=== PATIENT | female | born 1950 | race Caucasian/White ===

== ENCOUNTER 2016-11-11 14:57 | Inpatient (IN) | payer MEDICARE, MEDICAID ==
[~2016-11-11] VITALS: Ht 160 cm; Wt 61.9 kg
[~2016-11-11 14:57] MED LIST: ALBU2.5V2 AEROSOL; ALBU8.5H INH; ASPI-13 PO; ATOR20TA59 PO; BUDE0.5A6 AEROSOL; CYCL-375 PO; DABI150C PO; DILT240C3 PO; DOCU-175 PO; DULO60CA56 PO; FURO20TA4 PO; GABA-338 PO; IPRA3AMP AEROSOL; ISOS30TA6 PO; METO-277 PO; MONT10TA25 PO; NITR0.4T SL; OXYC1TAB13 PO; PANT40TA27 PO; POTA10TA14 PO; PRED20TA PO; SUCR1TAB PO; TIOT4MIS5 INH; [UNRECOGNIZED DRUG - CODE] PO
--- OUTSIDE RECORDS SUMMARY | 2016-11-11 15:02 | XMS REPORT | Continuity of Care Document ---
Author Author NA [facility] Organization [facility] Address Unknown Phone Unavailable Support Name Relationship Address Phone KANDI MESSER DO Caregiver [address] [place] [address] Unavailable KANDI MESSER DO Caregiver [address] [place] [address] Unavailable JONEL HILLMAN Next Of Kin [address] [place] [address] Insurance Providers Guarantor Neville Berman Address [address] [place] [address] Email DENIED/NO TO PT PORTAL Payer [facility] Community Plan Policy Number [id number] Subscriber's Name Neville Berman Relationship 18 Self Effective Date 16 Expiration Date 16 Payer Medicare Policy Number [id number] Subscriber's Name Neville Berman Relationship 18 Self Advance Directives Directive Response Recorded Date/Time Ordered Resuscitation Status Full Code, unverified 06/26/16 3:32pm Resuscitation Documents on File No 06/28/16 6:55am DPOA for Healthcare Only No 06/28/16 6:55am Living Will No 06/28/16 6:55am Problems Active Problems Medical Problem Onset Date Status Atrial fibrillation Unknown Chronic COPD exacerbation Unknown Acute Carotid artery disease Unknown Chronic Chronic respiratory insufficiency Unknown Chronic Constipation Unknown Acute Coronary artery disease Unknown Chronic Dyslipidemia Unknown Chronic Dysphagia Unknown Chronic GERD (gastroesophageal reflux disease) Unknown Chronic Hypertension Unknown Chronic Osteoarthritis Unknown Chronic Paroxysmal atrial fibrillation Unknown Resolved Polymyalgia rheumatica Unknown Chronic Pulmonary hypertension Unknown Chronic Skin tear of left forearm without complication Unknown Acute Syncopal episodes Unknown Acute Tobacco abuse Unknown Chronic Type 2 diabetes mellitus Unknown Chronic Surgical Problem Onset Date Status History of left-sided carotid endarterectomy Unknown Past Problems Medical Problem Onset Date Acute bronchitis Unknown COPD (chronic obstructive pulmonary disease) Unknown COPD (chronic obstructive pulmonary disease) Unknown Hypoxia Unknown Peripheral edema Unknown Medications Current Home Medications Medication Dose Units Route Directions Days Qty Instructions Start Date Albuterol Sulfate 2.5 Mg/0.5 Ml Vial.neb 2 Vial Aerosol Tx. Every 6 Hours 120 Vial 06/26/16 Albuterol Sulfate (Proair Hfa 90 Mcg/Actuation) 8.5 Gm Hfa.aer.ad 2 Puff Inhalation Every 4 Hours as needed for Prn Orders 07/24/15 Aspirin/Calcium Carbonate/Mag (Aspirin Buffered 325 Mg Tab) 325 Mg Tablet 1 Tab Oral Daily 06/27/16 Atorvastatin Calcium 20 Mg Tablet 20 Mg Oral Daily 07/24/15 Budesonide 0.5 Mg/2 Ml Ampul.neb 1 Vial Aerosol Tx. Twice A Day 05/08/16 Cyclobenzaprine Hcl 10 Mg Tablet 10 Mg Oral Three Times A Day as needed for Prn Orders 07/24/15 Dabigatran Etexilate Mesylate (Pradaxa) 150 Mg Capsule 150 Mg Oral Twice A Day 07/24/15 Diltiazem Hcl (Diltiazem 24HR Er) 240 Mg Capsule 240 Mg Oral Daily 07/24/15 Docusate Sodium 100 Mg Capsule 100 Mg Oral Twice A Day 05/08/16 Duloxetine Hcl 60 Mg Capsule.dr 60 Mg Oral Daily 07/24/15 Furosemide 20 Mg Tablet 1 Tab Oral Daily 30 06/26/16 Gabapentin 300 Mg Capsule 300 Mg Oral Four Times Daily 07/24/15 Guaifenesin/Dextromethorphan (Guaifenesin-Dm 400-20 Mg Cplt) 1 Each Tablet 1 Tab Oral Twice A Day 04/17/16 Ipratropium/Albuterol Sulfate (Iprat-Albut 0.5-3(2.5) Mg/3 Ml) 3 Ml Ampul.neb 1 Unit Aerosol Tx. Four Times Daily 12/14/15 Isosorbide Mononitrate (Isosorbide Mononitrate Er) 30 Mg Tab.er.24h 1 Tab Oral Daily 30 06/26/16 Metoprolol Succinate 50 Mg Tab.er.24h 50 Mg Oral Daily 07/24/15 Montelukast Sodium 10 Mg Tablet 10 Mg Oral Bedtime 07/24/15 Nitroglycerin (Nitrostat) 0.4 Mg Tablet 1 Tab Sublingual As Needed as needed for Prn Orders 100 Tablet 03/31/16 Oxycodone Hcl/Acetaminophen (Percocet 10-325 Mg Tablet) 1 Each Tablet 1 Tab Oral Every 6 Hours as needed for Pain 07/24/15 Pantoprazole Sodium 40 Mg Tablet.dr 40 Mg Oral Twice A Day Potassium Chloride 10 Meq Tablet.er 10 Meq Oral Daily 05/08/16 Prednisone 20 Mg Tablet 60 Mg Oral Give With Breakfast Take 3 (20 mg ) tablets, by mouth, once a day with breakfast. 06/26/16 Sucralfate 1 Gm Tablet 1 Gm Oral Four Times Daily 05/08/16 Tiotropium [place] (Spiriva Respimat) 4 Gm Mist.inhal 2 Puff Inhalation Bedtime 07/24/15 Past Home Medications Medication Directions Ordered Status Budesonide (Pulmicort) 0.5 Mg/2 Ml Inha, 1 Puff Inhalation As Needed as needed for Prn Orders 07/24/15 Discontinued Pantoprazole Sodium 40 Mg Tablet.dr, 40 Mg Oral Before Breakfast 07/24/15 Discontinued Social History Social History Problem Response Recorded Date/Time Onset Date Status Reason for Hospitalization EGD 06/28/2016 8:05am Not Applicable Not Applicable Chewing Tobacco Status No 06/28/2016 6:57am Not Applicable Not Applicable Hx Substance Use No 06/28/2016 6:57am Not Applicable Not Applicable Hx Alcohol Use No 06/28/2016 6:57am Not Applicable Not Applicable Has the pt used tobacco in the last 12 months Yes 06/28/2016 6:57am Not Applicable Not Applicable Tobacco Usage smoke 07/24/2015 4:37pm Not Applicable Not Applicable Query Response Start Date Stop Date Smoking Status Former smoker Hospital Discharge Instructions Instructions: Care Instructions: I was in the hospital because (patient own words): CHECK ULCERS AND BLEEDING IN THE STOMACH Discharge Diet: You may resume your usual diet. Discharge Activity: You may resume your usual activity. Follow Up Appointments: Follow up with Dr. Messer as instructed. You can call his office for any questions or concerns. Pending Lab / Results: No Pending Lab Patient Instructions: Do not drive, operate machinery, drink alcohol, or sign important papers for 24 hours. Expected Signs/Symptoms: You may have some gas discomfort. Notify Physician If: Contact if you have a fever over 101 degrees, severe abdominal pain, or severe rectal bleeding. During Business Hours:: During office hours, call Dr. Messer's office at [phone]. After Business Hours:: Please call [facility] at [phone] and have the knot saw operator page Dr. Messer or the covering physician. Pain Management/Treatment: You should not have significant pain following the procedure. Wound/Incision Care: No wound care required. Condition at time of discharge: Good Plan of Care Discharge Date 06/28/16 9:10am Instructions/Education Provided [facility] Surgical Services Prescriptions See Medication Section Functional Status Query Response Date Recorded Ability to complete ADL's impeded by No change June 28, 2016 6:55am Allergies, Adverse Reactions, Alerts Allergen Type Severity Reaction Status Last Updated Strawberries Allergy Unknown Active 05/08/16 Penicillin Allergy Unknown Active 05/08/16 Tetanus Vaccines and Toxoid Allergy Unknown Active 05/08/16 Morphine Allergy Unknown Active 05/08/16 Propoxyphene Allergy Unknown Active 05/08/16 Tetracycline Allergy Unknown Active 05/08/16 Erythromycin base Allergy Unknown Active 05/08/16 Meperidine Allergy Unknown Active 05/08/16 Immunizations Query Response on File Recorded Date/Time Hx Influenza Vaccination Y 03/17/16 06/28/16 6:57am Hx Pneumococcal Vaccination Y PREVNAR 04 JUL 2015, PREVNAR 23 03/17/16 6:57am Hx Influenza Vaccination Y 03/17/16 06/28/16 6:57am DTaP Vaccine History ALLERGIC 05/08/16 3:49pm Influenza Vaccine Hx 2016 05/08/16 3:49pm Tdap Vaccine Hx 11/19/15 11/19/15 2:00am Vital Signs Acute Vital Signs Vital Response Date/Time Temperature (Fahrenheit) 97.5 deg F (96.8 - 99.1) 06/28/2016 8:40am Temperature (Calculated Celsius) 36.07423 degrees C (36.0 - 37.3) 06/28/2016 8:40am Temperature Source Temporal 06/28/2016 8:40am Pulse Rate (adult) 74 bpm (60 - 100) 06/28/2016 8:55am Respiratory Rate 16 breaths/min (10 - 20) 06/28/2016 8:55am O2 Sat by Pulse Oximetry 96 % (90 - 100) 06/28/2016 8:55am Oxygen Delivery Method Room Air 04/17/2016 5:45pm Oxygen Delivery Method Nasal Cannula 06/28/2016 8:55am Oxygen Flow Rate 3.00 L/min 06/28/2016 8:55am Blood Pressure 127/63 mm Hg 06/28/2016 8:55am Blood Pressure Source Automatic Cuff 06/28/2016 8:55am Height (Feet) 5 feet 06/28/2016 6:25am Height (Inches) 2.00 inches 06/28/2016 6:25am Weight (Kilograms) 64.200 kg 06/28/2016 6:25am Body Mass Index (BMI) 25.9 06/28/2016 6:25am Results Laboratory Results Test Name Result Units Flags Reference Collection Date/Time Result Date/ Time Comments Total Bilirubin 0.40 MG/DL 0.20-1.30 04/07/2016 3:57am 04/07/2016 5: 04am Alkaline Phosphatase 47 U/L 38-126 04/07/2016 3:57am 04/07/2016 5:04am Total Protein 5.6 G/DL L 6.3-8.2 04/07/2016 3:57am 04/07/2016 5:04am Albumin 3.2 G/DL L 3.5-5.0 04/07/2016 3:57am 04/07/2016 5:04am Globulin 2.4 G/DL 2.4-3.6 04/07/2016 3:57am 04/07/2016 5:04am Albumin/Globulin Ratio 1.3 RATIO 1.1-2.2 04/07/2016 3:57am 04/07/2016 5 :04am Aspartate Amino Transf (AST/SGOT) 20 U/L 14-36 04/07/2016 3:57am 2015 5:04am Alanine Aminotransferase (ALT/SGPT) 24 U/L 9-52 04/07/2016 3:57am 04/07 5:04am Magnesium Level 2.3 MG/DL 1.6-2.3 04/04/2016 3:57am 04/04/2016 4:58am Free Thyroxine 1.32 NG/DL 0.78-2.19 03/31/2016 10:03pm 04/03/2016 1: 16am Hemoglobin A1c 6.1 % 6.1-7.9 04/03/2016 4:23am 04/03/2016 5:43am <6.0 NON-DIABETIC RANGE 6.1-7.9 EMIRATI DIABETES ASSOC TARGET RANGE >8.0 ACTION SUGGESTED Arterial Blood pH 7.400 7.350-7.450 03/31/2016 4:45pm 03/31/2016 4: 54pm Arterial Blood Partial Pressure CO2 50 MMHG H 34-45 03/31/2016 4:45pm 4:54pm Arterial Blood pO2 at Patient Temp 78 MMHG L 80-100 03/31/2016 4:45pm 4:54pm Arterial Blood HCO3 31 MEQ/L H 22-26 03/31/2016 4:45pm 03/31/2016 4: 54pm Arterial Blood Total CO2 32.5 MEQ/L H 23-03/31/2016 4:45pm 2015 4:54pm Arterial Blood Base Excess 5.1 MMOL/L H -2.0-2.0 03/31/2016 4:45pm 03/31 4:54pm Arterial Blood Oxygen Saturation 95.0 % 95.0-98.0 03/31/2016 4:45pm 03/2016 4:54pm Blood Gas Oxygen Liter Flow 2 03/31/2016 4:45pm 03/31/2016 4:54pm Oxygen Delivery Method (LAB) NASAL CANNULA,LITERS 03/31/2016 4:45pm 03/31/2016 4:54pm Neutrophils % (Manual) 90.0 % H 33-66 04/17/2016 12:46pm 04/17/2016 1: 28pm Band Neutrophils % 3.0 % 0-6 04/17/2016 12:46pm 04/17/2016 1:28pm Lymphocytes % (Manual) 6.0 % L 23-45 04/17/2016 12:46pm 04/17/2016 1: 28pm Monocytes % (Manual) 1.0 % 0-9.0 04/17/2016 12:46pm 04/17/2016 1:28pm Band Neutrophils # 0.4 T/MM3 04/17/2016 12:46pm 04/17/2016 1:28pm Absolute Neutrophils (Manual) 10.8 T/MM3 H 1.8-7.7 04/17/2016 12:46pm 1:28pm Lymphocytes # (Manual) 0.7 T/MM3 L 1-4.8 04/17/2016 12:46pm 04/17/2016 1 :28pm Monocytes # (Manual) 0.1 T/MM3 0-0.8 04/17/2016 12:46pm 04/17/2016 1: 28pm Red Cell Morphology Comment NORMAL 04/17/2016 12:46pm 04/17/2016 1: 28pm White Blood Count 8.5 T/MM3 4.5-11.0 05/08/2016 2:34pm 05/08/2016 2: 52pm Red Blood Count 3.89 M/MM3 L 4.00-5.20 05/08/2016 2:34pm 05/08/2016 2: 52pm Hemoglobin 12.4 GM/DL 12-16 05/08/2016 2:34pm 05/08/2016 2:52pm Hematocrit 38.2 % 36-46 05/08/2016 2:34pm 05/08/2016 2:52pm Mean Corpuscular Volume 98.2 UM3 80-100 05/08/2016 2:34pm 05/08/2016 2: 52pm Mean Corpuscular Hemoglobin 31.9 UUG 26-34 05/08/2016 2:34pm 2015 2:52pm Mean Corpuscular Hemoglobin Concent 32.5 GM/DL 31-37 05/08/2016 2:34pm 05/08/2016 2:52pm RDW Standard Deviation 48.3 FL 36.9-50.2 05/08/2016 2:34pm 05/08/2016 2 :52pm Platelet Count 359 T/MM3 D 130-400 05/08/2016 2:34pm 05/08/2016 2:52pm Mean Platelet Volume 8.7 UM3 L 9.4-12.4 05/08/2016 2:34pm 05/08/2016 2: 52pm Neutrophils (%) (Auto) 71.7 % H 33-66 05/08/2016 2:34pm 05/08/2016 2: 52pm Lymphocytes (%) (Auto) 20.1 % L 23-45 05/08/2016 2:34pm 05/08/2016 2: 52pm Monocytes (%) (Auto) 7.2 % 0-9.0 05/08/2016 2:34pm 05/08/2016 2:52pm Eosinophils (%) (Auto) 0.2 % 0-4 05/08/2016 2:34pm 05/08/2016 2:52pm Basophils (%) (Auto) 0.4 % 0-2 05/08/2016 2:34pm 05/08/2016 2:52pm Immature Granulocyte % (Auto) 0.4 % 0.0-0.5 05/08/2016 2:34pm 2015 2:52pm Absolute Neutrophils (auto) 6.1 T/MM3 1.8-7.7 05/08/2016 2:34pm 2015 2:52pm Absolute Lymphocytes (auto) 1.7 T/MM3 1-4.8 05/08/2016 2:34pm 2015 2:52pm Absolute Monocytes (auto) 0.6 T/MM3 0-0.8 05/08/2016 2:34pm 05/08/2016 2:52pm Absolute Eosinophils (auto) 0.0 T/MM3 0-0.5 05/08/2016 2:34pm 2015 2:52pm Absolute Basophils (auto) 0.0 T/MM3 0-0.2 05/08/2016 2:34pm 05/08/2016 2:52pm Absolute Immature Granulocyte (auto 0.03 T/MM3 0.00-0.03 05/08/2016 2: 34pm 05/08/2016 2:52pm Prothromb Time International Ratio 1.03 0.99-1.21 05/08/2016 2:34pm 05/08/2016 2:47pm THERAPUTIC RANGE=2.00-3.00 FOR ANTI-THROMBOSIS THERAPUTIC RANGE=2.50-3.50 FOR IMPLANTED VALVE D-Dimer 346 NG/ML H 0-230 05/08/2016 2:34pm 05/08/2016 2:47pm <230 NG/ ML D-DU=PRESUMPTIVE NEGATIVE FOR PE OR DVT >230 NG/ML D-DU=ADDITIONAL EVAL FOR PE OR DVT RECOMMENDED Icterus Index < 2 0-7 05/08/2016 2:34pm 05/08/2016 2:49pm Chemistry Specimen Hemolysis < 15 0-25 05/08/2016 2:34pm 05/08/2016 2 :49pm 0-25: Specimen Exhibited No Hemolysis. Turbidity < 20 0-20 05/08/2016 2:34pm 05/08/2016 2:49pm Sodium Level 141 MEQ/L 134-144 05/08/2016 2:34pm 05/08/2016 2:49pm Potassium Level 3.7 MEQ/L 3.6-5 05/08/2016 2:34pm 05/08/2016 2:49pm Chloride Level 100 MEQ/L 98-107 05/08/2016 2:34pm 05/08/2016 2:49pm Carbon Dioxide Level 30 MEQ/L 22-30 05/08/2016 2:34pm 05/08/2016 2: 49pm Anion Gap 11 MEQ/L 5-15 05/08/2016 2:34pm 05/08/2016 2:49pm Blood Urea Nitrogen 11.0 MG/DL -05/08/2016 2:34pm 05/08/2016 2: 49pm Creatinine 0.6 MG/DL L 0.7-1.2 05/08/2016 2:34pm 05/08/2016 2:49pm BUN/Creatinine Ratio 18 RATIO 6-26 05/08/2016 2:34pm 05/08/2016 2:49pm Glomerular Filtration Rate Calc 100 05/08/2016 2:34pm 05/08/2016 2: 49pm Glucose Level 166 MG/DL H 65-110 05/08/2016 2:34pm 05/08/2016 2:49pm Calculated Osmolality 274 MOSM/KG 261-280 05/08/2016 2:34pm 05/08/2016 2:49pm Calcium Level 9.3 MG/DL 8.4-10.2 05/08/2016 2:34pm 05/08/2016 2:49pm Troponin I < 0.012 ng/ml 0-0.12 05/08/2016 2:34pm 05/08/2016 3:01pm Troponin values with a difference of 55% increase from orginal troponin value represent a true biological DELTA value. (%increase Calc=Orginal Troponin value, divided by subsequent Troponin value, multiplied by 100) PV-Mfq-Q-Type Natriuretic Peptide 729 PG/ML H 0-175 05/08/2016 2:34pm 3:01pm Rule in cut points: <50 years old=450; 50-75 years old=900; >75 years old=1800; When utilizing ProBNP rule-in cut points, adjustment for impaired renal function is typically not required. Thyroid Stimulating Hormone (TSH) 0.31 MIU/L L 0.47-4.68 05/08/2016 2: 34pm 05/08/2016 3:20pm Glucometer 115 mg/dL H 65-110 06/28/2016 6:56am 06/28/2016 7:01am Procedures Procedure Status Date Provider(s) EGD BIOPSY SINGLE/MULTIPLE Completed 03/31/16 KANDI MESSER DO EXCISION OF LOWER ESOPHAGUS, ENDO, DIAGN Completed 04/06/16 KANDI MESSER DO EXCISION OF DUODENUM, ENDO, DIAGN Completed 04/06/16 KANDI MESSER DO EXCISION OF ESOPHAGOGASTRIC JUNCTION, ENDO, DIAGN Completed 04/06/[address] C[address] CAROTID/INOM ART Completed 04/17/16 LINDSEY CAMACHO MD ROUTINE VENIPUNCTURE Completed 04/17/16 METABOLIC PANEL TOTAL CA Completed 04/17/16 COMPLETE CBC W/AUTO DIFF WBC Completed 04/17/16 ELECTROCARDIOGRAM TRACING Completed 04/17/16 L HRT ARTERY/VENTRICLE ANGIO Completed 04/17/16 LINDSEY CAMACHO MD BEHAV CHNG SMOKING 3-10 MIN Completed 04/17/16 [id number] ITEM OR SERVICE Completed 04/17/16 [id number]"CLOSURE DEVICE, VASCULAR (IMPLANTABLE/INSERTABLE)" Completed 04/17/16 [id number]"CATHETER, GUIDING (MAY INCLUDE INFUSION/PERFUSION CAP Completed [id number]"INJECTION, HEPARIN SODIUM, PER 1000 UNITS" Completed 04/17/16 [id number]"INJECTION, MIDAZOLAM HYDROCHLORIDE, PER 1 MG" Completed 04/17/16 [id number]"INJECTION, FENTANYL CITRATE, 0.1 MG" Completed 04/17/16735147"INFUSION, NORMAL SALINE SOLUTION , 1000 CC" Completed 04/17/16 [id number]"LOW OSMOLAR CONTRAST MATERIAL, 300-399 MG/ML IODINE C Completed ROUTINE VENIPUNCTURE Completed 04/14/16 METABOLIC PANEL TOTAL CA Completed 04/14/16 ASSAY OF NATRIURETIC PEPTIDE Completed 04/14/16 COMPLETE CBC W/AUTO DIFF WBC Completed 04/14/16 EMERGENCY DEPT VISIT Completed 04/14/16 [id number] ITEM OR SERVICE Completed 04/14/16 [id number] ITEM OR SERVICE Completed 04/14/16 CHEST X-RAY 1 VIEW FRONTAL Completed 05/08/16 CT ANGIOGRAPHY CHEST Completed 05/08/16 METABOLIC PANEL TOTAL CA Completed 05/08/16 ASSAY OF NATRIURETIC PEPTIDE Completed 05/08/16 ASSAY THYROID STIM HORMONE Completed 05/08/16 ASSAY OF TROPONIN QUANT Completed 05/08/16 COMPLETE CBC W/AUTO DIFF WBC Completed 05/08/16 FIBRIN DEGRADATION QUANT Completed 05/08/16 PROTHROMBIN TIME Completed 05/08/16 ELECTROCARDIOGRAM TRACING Completed 05/08/16 EMERGENCY DEPT VISIT Completed 05/08/16 [id number] ITEM OR SERVICE Completed 05/08/16 [id number]"INFUSION, NORMAL SALINE SOLUTION , 250 CC" Completed 05/08/16 [id number]"LOW OSMOLAR CONTRAST MATERIAL, 300-399 MG/ML IODINE C Completed EGD (esophagogastroduodenoscopy) Completed 06/28/16 KANDI MESSER DO Encounters Encounter Location Arrival/Admit Date Discharge/Depart Date Attending Provider Departed Surgical Day Care [facility] 06/28/16 6:25am 06/28/16 9: 10am KANDI MESSER DO Departed Emergency Room [facility] 05/08/16 2:02pm 05/08/16 4: 48pm NOVEMBERBEN DO Departed Clinic [facility] 04/17/16 12:02pm 04/17/16 6:50pm LINDSEY CAMACHO MD Departed Emergency Room [facility] 04/14/16 4:42pm 04/14/16 7: 07pm BEN HAGAN DO Discharged Inpatient [facility] 03/31/16 4:10pm 04/07/16 6:52pm KANDI MESSER DO
--- OUTSIDE RECORDS SUMMARY | 2016-11-11 15:02 | XMS REPORT | Summary of Care ---
Author Author Otto Pandya M.D. Organization Unknown Address Unknown Phone Unavailable Care Team Providers Care Maintenance Carpenter Name Role Phone Fab Carter, Salomon Fernández Unavailable Unavailable Patrick Mckenna Unavailable Unavailable Trae Pandya M.D. Unavailable Unavailable Palak Carter, Radha Unavailable Unavailable Nuno Umana M.D. Unavailable Unavailable Anthony Jean Unavailable Unavailable Unavailable Unavailable Functional Status Name Dates Details Functional status health issues are not documented Status: Name Dates Details Cognitive status health issues are not documented Status: Problems Name Dates Details Joint Pain In Both Knees Status: Active Difficulty breathing (786.09, R06.89) Status: Active Diabetes mellitus (250.00, E11.9) Status: Active Sinus tachycardia (427.89, R00.0) Status: Active Chest pain (786.50, R07.9) Status: Active Chronic obstructive pulmonary disease (496, J44.9) Status: Active Atypical chest pain (786.59, R07.89) Status: Active Degenerative disc disease, lumbar (722.52, M51.36) Status: Active Low back pain (724.2, M54.5) Status: Active 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, 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 Atrial fibrillation (427.31, I48.91) Status: Active Diastolic dysfunction (429.9, I51.9) Status: Active Hypertension (401.9, I10) Status: Active Tobacco abuse (305.1, Z72.0) Status: Active Osteoarthritis of knee (715.36, M17.9) Status: Active Bursitis of hip (726.5, M70.70) Status: Active Chronic pain (338.29, G89.29) Status: Active Shoulder pain, right (719.41, M25.511) Status: Active Rotator cuff syndrome, right (726.10, M75.101) Status: Active Arthralgia of multiple sites (719.49, M25.50) Status: Active Localized primary osteoarthritis of left lower leg (715.16, M17.12) Status: Active Chronic use of opiate drugs therapeutic purposes (V58.69, Z79.899) Status: Active Medications Name Dates Details Protonix 40 MG Oral Tablet Delayed Release TAKE 1 TABLET DAILY. * Start 03-Jun-2008 Active Flecainide Acetate 150 MG Oral Tablet TAKE 1 TABLET BY MOUTH EVERY 12 HOURS * Quantity: 60 Refills: 5 Salomon Sanon M.D. * Start Active Singulair 10 MG Oral Tablet TAKE 1 TABLET DAILY. * Refills: 0 * Start 03-Jun-2008 Active Gabapentin 300 MG Oral Capsule TAKE 1 CAPSULE 4 times daily * Quantity: 120 Refills: 2 Otto Pandya M.D. * Start 03-Jun-2008 Active Spiriva HandiHaler 18 MCG Inhalation Capsule INHALE CONTENTS OF 1 CAPSULE ONCE DAILY. * Refills: 0 * Start 03-Jun-2008 Active Pulmicort 0.5 MG/2ML Inhalation Suspension USE 1 UNIT DOSE VIA NEBULIZER TWO TIMES A DAY * Quantity: 120 Refills: 0 Klarissa Lopez.Hugo Latif * Start 27-Apr-2009 Active Brovana 15 MCG/2ML Inhalation Nebulization Solution INHALE THE CONTENTS OF 1 VIAL TWO TIMES DAILY IN THE MORNING AND EVENING VIA STANDARD JET NEBULIZER DIRECTED. * Quantity: 120 Refills: 0 Klarissa Lopez.AHugo Ruelas * Start 27-Apr-2009 Active ProAir HFA 108 (90 Base) MCG/ACT Inhalation Aerosol Solution INHALE 2 PUFFS EVERY 4 HOURS NEEDED * Refills: 0 * Start Active DiltiaZEM HCl ER Coated Beads 240 MG Oral Capsule Extended Release 24 Hour TAKE 1 CAPSULE DAILY. * Quantity: 30 Refills: 5 Radha Cid M.D. * Start 26-Jul-2011 Active Oxycodone-Acetaminophen 10-325 MG Oral Tablet Si PO every 6 hrs prn with a max of 4 per day.Script must last [address] Pandya. * Quantity: 120 Refills: 0 Otto Pandya M.D. * Start 25-Sep-2011 Active Cymbalta 60 MG Oral Capsule Delayed Release Particles TAKE 1 CAPSULE DAILY. * Refills: 0 * Start 06-Nov-2011 Active Mucinex 600 MG Oral Tablet Extended Release 12 Hour Take 1 tablet twice daily * Refills: 0 * Start 06-Nov-2011 Active Oxygen 3L 24 hours daily * Quantity: 1 Refills: 0 Cade Umana M.D. * Start 06-Nov-2011 Active Metoprolol Succinate ER 50 MG Oral Tablet Extended Release 24 Hour TAKE 1 TABLET EVERY DAY * Quantity: 90 Refills: 1 * Start Active Pradaxa 150 MG Oral Capsule TAKE 1 CAPSULE BY MOUTH TWICE DAILY * Quantity: 60 Refills: 5 Salomon Sanon M.D. * Start 19-Apr-2016 Active Furosemide 40 MG Oral Tablet Take one tablet daily * Refills: 0 Salomon Sanon M.D. * Start 08-Apr-2014 Active Dexamethasone 2 MG Oral Tablet * Refills: 0 Salomon Sanon M.D. * Start 08-Apr-2014 Active Nitrostat 0.4 MG Sublingual Tablet Sublingual TAKE DIRECTED. * Refills: 0 Salomon Sanon M.D. * Start 08-Apr-2014 Active Cyclobenzaprine HCl - 10 MG Oral Tablet Si PO Tid. * Quantity: 90 Refills: 2 Otto Pandya M.D. * Start Active Allergies and Adverse Reactions Name Dates Details Cephalexin Monohydrate TABS (Allergy) Status: Active Codeine Derivatives (Allergy) Status: Active Darvocet-N 50 TABS (Allergy) Status: Active Darvon CAPS (Allergy) Status: Active Demerol TABS (Allergy) Status: Active Erythromycin Derivatives (Allergy) Status: Active Lidocaine HCl (PF) SOLN (Allergy) Status: Active Morphine Derivatives (Allergy) Status: Active Penicillins (Allergy) Status: Active Sulfa Drugs (Allergy) Status: Active Tetanus Toxoid Fluid SOLN (Allergy) Status: Active Tetracyclines (Allergy) Status: Active Vioxx TABS (Allergy) Status: Active Past Medical History Name Dates Details History of acute bronchitis (V12.69, Z87.09) Status: Resolved Procedures Procedure Dates Details History of Total Knee Arthroplasty Completed: 27-May-2012 History of Total Knee Arthroplasty Completed: 28-Feb-2012 History of Section History of Hysterectomy History of Appendectomy History of Hand Surgery Procedures not documented Immunization Name Dates Details Immunizations not documented Family History Name Dates Details Family history of Emphysema Status: Active Name Dates Details Family history of Tuberculosis Status: Active Social History Name Dates Details - Status: Name Dates Details Smoker. current status unknown Vital Signs Date Test Result Details No Known Vitals to report Results Date Description Value Details Results not documented Plan of Care Name Dates Details Planned Observations Planned Goals not documented Planned Encounters Appointment; Provider: Otto Pandya M.D. On 03-Oct-2016 11:00 Interventions Provided Medication Changes* Oxycodone-Acetaminophen 10-325 MG Oral Tablet - Renew Instructions Name Dates Details Instructions not documented Encounters Appointment; Otto Pandya M.D. Encounter Diagnosis: Problem not documented On 05-Sep-2016 11:15 Appointment; Otto Pandya M.D. Encounter Diagnosis: Problem not documented On 29-Jun-2016 10:00 Appointment; Otto Pandya M.D. Encounter Diagnosis: Problem not documented On 04-May-2016 10:30 Appointment; Salomon Sanon M.D. Encounter Diagnosis: Problem not documented On 16-Mar-2016 11:15 Appointment; Otto Pandya M.D. Encounter Diagnosis: Problem not documented On 06-Mar-2016 09:45 Appointment; Salomon Sanon M.D. Encounter Diagnosis: Problem not documented On 10:15 Appointment; Otto Padnya M.D. Encounter Diagnosis: Problem not documented On 10:30 Appointment; Salomon Sanon M.D. Encounter Diagnosis: Problem not documented On 10-Nov-2015 10:30 Appointment; Otto Pandya M.D. Encounter Diagnosis: Problem not documented On 01-Nov-2015 10:00 Appointment; Otto Pandya M.D. Encounter Diagnosis: Problem not documented On 22-Jun-2015 13:45 Appointment; Salomon Sanon M.D. Encounter Diagnosis: Problem not documented On 12-May-2015 11:00 Appointment; Nancy Vieyra P.A. Encounter Diagnosis: Problem not documented On 15-Apr-2015 13:45 Appointment; Nancy Vieyra P.A. Encounter Diagnosis: Problem not documented On 10:45 Appointment; Salomon Sanon M.D. Encounter Diagnosis: Problem not documented On 04-Nov-2014 10:45 Appointment; Salomon Sanon M.D. Encounter Diagnosis: Problem not documented On 21-Oct-2014 10:45 Appointment; Nancy Vieyra P.A. Encounter Diagnosis: Problem not documented On 20-Oct-2014 10:30
--- OUTSIDE RECORDS SUMMARY | 2016-11-11 15:04 | XMS REPORT | Summary of Care ---
Author Author Otto Pandya M.D. 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 * Quantity: 120 Refills: 0 Klarissa Lopez.Hugo Latif * Start 27-Apr-2009 Active ProAir HFA 108 [...] Refills: 0 Otto Pandya M.D. * Start 02-Aug-2016 Active Cymbalta 60 MG Oral Capsule Delayed [...] History of Appendectomy History of Hand Surgery Drug Screen Pain Management 8400 Ordered: 29-Jun-2016 Immunization Name Dates Details Immunizations not documented [...] Planned Observations Planned Goals not documented Planned Medications Oxycodone-Acetaminophen 10-325 MG Oral Tablet Ordered: 02-Aug-2016 Active Interventions Provided Labs/Procedures/Imaging* Drug Screen Pain Management 8400; To be Done: 29 Jun 2016 Instructions Name Dates Details Instructions not documented Encounters Appointment; Otto Pandya M.D. Encounter Diagnosis: Problem not documented On 04-May-2016 10:30 Appointment; Salomon Sanon M.D. Encounter Diagnosis: Problem not documented On 16-Mar-2016 11:15 Appointment; Otto Pandya M.D. Encounter Diagnosis: Problem not documented On 06-Mar-2016 09:45 Appointment; Salomon Sanon M.D. Encounter Diagnosis: Problem not documented On 10:15 Appointment; Otto Pandya M.D. Encounter Diagnosis: Problem not documented On 10:30 Appointment; Salomon Sanon M.D. Encounter Diagnosis: Problem not documented On 10-Nov-2015 10:30 Appointment; Otto Pandya M.D. Encounter Diagnosis: Problem not documented On 01-Nov-2015 10:00 Appointment; Otto Pandya M.D. Encounter Diagnosis: Problem not documented On 22-Jun-2015 13:45 Appointment; Salomon Sanon M.D. Encounter Diagnosis: Problem not documented On 12-May-2015 11:00 Appointment; Nancy Vieyra, PNeeru Encounter Diagnosis: Problem not documented On 15-Apr-2015 13:45 Appointment; Nancy Vieyra P.A. Encounter Diagnosis: Problem not documented On 10:45 Appointment; Salomon Sanon M.D. Encounter Diagnosis: Problem not documented On 04-Nov-2014 10:45 Appointment; Salomon Sanon M.D. Encounter Diagnosis: Problem not documented On 21-Oct-2014 10:45 Appointment; Nancy Vieyra P.A. Encounter Diagnosis: Problem not documented On 20-Oct-2014 10:30
--- OUTSIDE RECORDS SUMMARY | 2016-11-11 15:05 | XMS REPORT | Continuity of Care Document ---
Author Author [facility] Organization [facility] Address Unknown Phone Unavailable Allergies Active Description Code Type Severity Reaction Onset Reported/Identified Relationship to Patient Clinical Status Yes tetanus toxoid, adsorbed tetanus toxoid, adsorbed Drug Allergy Moderate QUITS BREATHING 2015 Yes acetaminophen acetaminophen Drug Allergy Mild RASH 04/28/2016 Yes erythromycin base erythromycin base Drug Allergy Mild RED RASH 04/28/2016 Yes meperidine meperidine Drug Allergy Mild RASH 04/28/2016 Yes morphine morphine Drug Allergy Mild ITCH/VOMITS/QUIT BREATHING 04/28/2016 Yes PENCILLIN PENCILLIN Drug Allergy Mild RED ALL OVER 04/28/2016 Yes propoxyphene propoxyphene Drug Allergy Mild RASH 04/28/2016 Yes strawberry strawberry Drug Allergy Mild RASH 04/28/2016 Yes tetracycline tetracycline Drug Allergy Mild RED RASH 04/28/2016 Medications Problems Date Dx Coded Attending Type Code Diagnosis Diagnosed By 05/01/2016 Alexis Silva MD E78.5 HYPERLIPIDEMIA, UNSPECIFIED 05/01/2016 Alexis Silva MD I25.10 ATHSCL HEART DISEASE OF [place] CORONARY ARTERY W/O 05/01/2016 Alexis Silva MD I50.9 HEART FAILURE, UNSPECIFIED 05/01/2016 Alexis Silva MD I65.22 OCCLUSION AND STENOSIS OF LEFT CAROTID ARTERY 05/01/2016 Alexis Silva MD J44.9 CHRONIC OBSTRUCTIVE PULMONARY DISEASE, UNSPECIFIED 05/01/2016 Alexis Silva MD Z90.710 ACQUIRED ABSENCE OF BOTH CERVIX AND UTERUS 05/01/2016 Alexis Silva MD Z96.653 PRESENCE OF ARTIFICIAL KNEE JOINT, BILATERAL Procedures Code Description Performed By Performed On [id number] EXTIRPATION OF MATTER FROM L COM CAROTID, OPEN BOBBI Alexis Silva MD 05/01/2016 [id number] EXTIRPATION OF MATTER FROM L INT CAROTID, OPEN BOBBI Alexis Silva MD 05/01/2016 [id number] EXTIRPATION OF MATTER FROM L EXT CAROTID, OPEN BOBBI Alexis Silva MD 05/01/2016 Results Test Result Range CBC - 05/01/16 07:48 MEAN CELL HGB 32.0 pg 27.0-33.0 MEAN CELL HGB CONCENTRATION 33.8 g/dL 32.0-37.0 MEAN CELL VOLUME 94.7 fl 80.0-100.0 RED BLOOD CELL 3.94 m/cumm 4.00-6.00 RED CELL DISTRIBUTION WIDTH 15.6 % 11.0- 15.6 WHITE BLOOD CELL 8.0 k/cumm 5.0-10.0 HEMOGLOBIN 12.6 gm/dL 12.0-16.0 HEMATOCRIT 37.3 % 37.0-47.0 PLATELET COUNT 351 k/cumm 150-400 METABOLIC PANEL, BASIC - 05/01/16 07:48 POTASSIUM 3.5 mmol/L 3.5-5.3 EST GFR (MDRD) > 60 mL/min > 59 ANION GAP 10 mmol/L 5-15 EST CrCl (CG) > 60 mL/min > 59 GLUCOSE 95 mg/dL 70-99 CALCIUM 9.0 mg/dL 8.5-10.1 BLOOD UREA NITROGEN 11 mg/dL 7-20 CREATININE 0.8 mg/dL 0.6-1.0 SODIUM 144 mmol/L 135-148 CHLORIDE 104 mmol/L 98-110 CARBON DIOXIDE 30 mmol/L 21-32 GLUCOSE (POC) - 05/01/16 07:50 GLUCOSE (POC) 83 mg/dL 70-99 CBC - 05/02/16 05:07 MEAN CELL HGB 31.3 pg 27.0-33.0 MEAN CELL HGB CONCENTRATION 31.4 g/dL 32.0-37.0 MEAN CELL VOLUME 99.5 fl 80.0-100.0 RED BLOOD CELL 3.68 m/cumm 4.00-6.00 RED CELL DISTRIBUTION WIDTH 15.1 % 11.0- 15.6 WHITE BLOOD CELL 7.8 k/cumm 5.0-10.0 HEMOGLOBIN 11.5 gm/dL 12.0-16.0 HEMATOCRIT 36.6 % 37.0-47.0 PLATELET COUNT 298 k/cumm 150-400 RENAL FUNCTION PANEL - 05/02/16 05:07 POTASSIUM 4.4 mmol/L 3.5-5.3 EST GFR (MDRD) > 60 mL/min > 59 ANION GAP 5 mmol/L 5-15 EST CrCl (CG) > 60 mL/min > 59 GLUCOSE 91 mg/dL 70-99 CALCIUM 8.4 mg/dL 8.5-10.1 BLOOD UREA NITROGEN 7 mg/dL 7-20 CREATININE 0.5 mg/dL 0.6-1.0 SODIUM 138 mmol/L 135-148 CHLORIDE 104 mmol/L 98-110 CARBON DIOXIDE 29 mmol/L 21-32 ALBUMIN 3.2 gm/dL 3.4-5.0 PHOSPHORUS 2.8 mg/dL 2.5-4.9 MAGNESIUM - 05/02/16 05:07 MAGNESIUM 2.0 mg/dL 1.8-2.4 Encounters ACCT No. Visit Date/Time Discharge Status Pt. Type Provider Facility Loc./Unit Complaint [id number] 05/01/2016 06:57:00 2015 11:33:00 DIS Inpatient Ricardo PATEL, Alexis Mcneal [facility] [id number]
--- NOTE | 2016-11-11 15:08 | NUR ---
PROVIDER DR. VALDEZ AT BEDSIDE FOR EXAM.
--- NOTE | 2016-11-11 15:09 | NUR ---
CT PT TO CT BY CART AT THIS TIME.
--- NOTE | 2016-11-11 15:15 | NUR ---
RETURN PT RETURNED FROM CT BY CART AT THIS TIME.
--- OUTSIDE RECORDS SUMMARY | 2016-11-11 15:21 | XMS REPORT | Continuity of Care Document ---
Author Author [facility] Organization 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 Type Provider Facility Loc./Unit Complaint [id number] 05/01/2016 06:57:00 2015 11:33:00 DIS Inpatient Ricardo PATEL, Alexis Mcneal [facility] [id number]
[2016-11-11 15:30] LABS: BASOPHILS % (AUTO) 0.6 % (0-2); EOSINOPHILS # (AUTO) 0.1 T/MM3 (0-0.5); HCT - HEMATOCRIT 39.6 % (36-46); HGB - HEMOGLOBIN 13.1 GM/DL (12-16); IMMATURE GRANULOCYTE # (AUTO) 0.01 T/MM3 (0.00-0.03); IMMATURE GRANULOCYTE % (AUTO) 0.1 % (0.0-0.5); LYMPHOCYTES # (AUTO) 2.2 T/MM3 (1-4.8); LYMPHOCYTES % (AUTO) 31.3 % (23-45); MEAN CORPUSCULAR HGB 30.5 UUG (26-34); MEAN CORPUSCULAR HGB CONC(MCHC 33.1 GM/DL (31-37); MEAN CORPUSCULAR VOLUME 92.3 UM3 (80-100); MEAN PLATELET VOLUME 9.4 UM3 (9.4-12.4); MONOCYTES # (AUTO) 0.5 T/MM3 (0-0.8); MONOCYTES % (AUTO) 7.1 % (0-9.0); NEUTROPHILS #(AUTO)-ABSOLUTE 4.1 T/MM3 (1.8-7.7); NEUTROPHILS % (AUTO) 59.9 % (33-66); RED BLOOD COUNT 4.29 M/MM3 (4.00-5.20); WBC - WHITE BLOOD COUNT 6.9 T/MM3 (4.5-11.0)
--- NOTE | 2016-11-11 15:37 | NUR ---
XRAY PORTABLE XRAY AT BEDSIDE.
[2016-11-11 15:40] LABS: ALBUMIN 4.1 G/DL (3.5-5.0); ALBUMIN/GLOBULIN RATIO 1.4 RATIO (1.1-2.2); ALKALINE PHOSPHATASE 78 U/L (38-126); ALT (SGPT) 34 U/L (9-52); ANION GAP 12 MEQ/L (5-15); AST (SGOT) 31 U/L (14-36); BUN/CREATININE RATIO 9 RATIO (6-26); CALCIUM 9.5 MG/DL (8.4-10.2); CHLORIDE 102 MEQ/L (98-107); CO2 - CARBON DIOXIDE 28 MEQ/L (22-30); CREATININE 0.7 MG/DL (0.7-1.2); GLOMERULAR FILTRATION RATE 83; GLUCOSE 166 MG/DL (65-110); INR 1.14 (0.76-1.04); POTASSIUM 3.7 MEQ/L (3.6-5); PROTHROMBIN TIME 12.4 SEC (9.31-12.49); PTT 47.6 SEC (24-36); SODIUM 142 MEQ/L (134-144)
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
--- NOTE | 2016-11-11 16:05 | NUR ---
STATUS PT APPEARS TO BE RESTING COMFORTABLY IN CART. DENIES NEEDS AT THIS TIME. DENIES PAIN. ADVISED WAITING FOR ALL TEST RESULTS. CALL LIGHT WITHIN REACH, NEIGHBOR AT BEDSIDE FOR COMPANY. WILL CONTINUE TO MONITOR.
[2016-11-11 16:22] LABS: BLOOD, URINE 1+ (NEGATIVE); COLOR,URINE YELLOW (YELLOW); LEUKOCYTE ESTERASE ,URINE NEGATIVE (NEGATIVE); NITRITE,URINE NEGATIVE (NEGATIVE); UROBILINOGEN,URINE 0.2 EU/DL (NORMAL)
[2016-11-11 16:34] LABS: BACTERIA,URINE NONE SEEN (NEGATIVE); RBC,URINE 0-1 /HPF (0-3); WBC,URINE NONE SEEN /HPF (0-5)
--- NOTE | 2016-11-11 17:02 | NUR ---
REPORT CALLED TO WAYLON MARC ON MEDICAL UNIT. DENIES QUESTIONS.
--- NOTE | 2016-11-11 17:20 | NUR ---
ADMIT PT TAKEN TO MEDICAL UNIT, RM 148 BY W/C ON 3LPM O2 PER THIS RN. PT CONTINUES TO DENY PAIN OR WORSENED SHORTNESS OF BREATH. PT TRANSFERS FROM W/C TO BED WITH STEADILY WITH STANDBY ASSIST.
--- OUTSIDE RECORDS SUMMARY | 2016-11-11 17:23 | XMS REPORT | Continuity of Care Document ---
Author Author [facility] Organization [facility] Address Unknown Phone Unavailable Allergies Active [...] Silva MD I25.10 ATHSCL HEART DISEASE OF [place] CORONARY ARTERY W/O 05/01/2016 Alexis Silva MD I50.9 HEART FAILURE, UNSPECIFIED 05/01/2016 Alexis Silva MD I65.22 OCCLUSION AND STENOSIS OF LEFT CAROTID ARTERY 05/01/2016 Alexis Silva MD J44.9 CHRONIC OBSTRUCTIVE PULMONARY DISEASE, UNSPECIFIED 05/01/2016 Alexis Silva MD Z90.710 ACQUIRED ABSENCE OF BOTH CERVIX AND UTERUS 05/01/2016 Alexis Silva MD Z96.653 PRESENCE OF ARTIFICIAL KNEE JOINT, BILATERAL Procedures Code Description Performed By Performed On [id number] EXTIRPATION OF MATTER FROM L COM CAROTID, OPEN BOBBI Alexis Silva MD 05/01/2016 [id number] EXTIRPATION OF MATTER FROM L INT CAROTID, OPEN BOBBI Alexis Silva MD 05/01/2016 [id number] EXTIRPATION OF MATTER FROM L EXT CAROTID, [...] Status Pt. Type Provider Facility Loc./Unit Complaint [id number] 05/01/2016 06:57:00 2015 11:33:00 DIS Inpatient Ricardo PATEL, Alexis Mcneal [facility] [id number]
[2016-11-11] MEDS ORDERED: MAG-AL + SIM LIQUID 30 ML UDC PO PRN (17:45)
[2016-11-11] MEDS ORDERED: BISACODYL 10 MG SUPPOSITORY RECTALLY PRN (17:45)
[2016-11-11] MEDS ORDERED: ONDANSETRON 4mg/2ml INJECTION IV PRN (17:45)
[2016-11-11] MEDS ORDERED: NITROGLYCERIN 0.4 MG SUBLINGUAL TABLET SL PRN (17:45)
[2016-11-11] MEDS ORDERED: MILK OF MAGNESIA 30 ML SUSP PO PRN (17:45)
[2016-11-11] MEDS ORDERED: ALBUTEROL/IPRATROPIUM INHAL. 2.5mg-0.5mg/3ml Neb. AEROSOL PRN (17:45)
[2016-11-11] MEDS ORDERED: ACETAMINOPHEN 325 MG TABLET PO PRN (17:45)
[2016-11-11] MEDS ORDERED: PRN ORDERS MC (17:45)
[2016-11-11 17:50] VITALS: Ht 160 cm; Wt 61.9 kg
[2016-11-11 17:51] VITALS: BP 153/82; PULSE 81; RESP 16; TEMP 98.4; O2SAT 94
--- NOTE | 2016-11-11 18:19 | NUR ---
admit Pt to room at 1720 via WC. V/S taken and stable on 3L. After diet order in, had kitchen bring dinner. Pt comfortable at this time, ambulating well with standby assist to bathroom.
[2016-11-11 19:16] VITALS: O2SAT 94
[2016-11-11] MEDS: BUDESONIDE INH.SOLN. 0.5mg/2ml NEB AEROSOL SCH (19:23)
[2016-11-11] MEDS: ALBUTEROL/IPRATROPIUM INHAL. 2.5mg-0.5mg/3ml Neb. AEROSOL SCH (19:23)
[2016-11-11 19:31] VITALS: PULSE 78; RESP 16; O2SAT 92
[2016-11-11 20:00] VITALS: PULSE 78; RESP 16
--- NOTE | 2016-11-11 20:12 | NUR ---
MRI Pt left the floor for MRI.
[2016-11-11] MEDS ORDERED: PANTOPRAZOLE 40 MG TABLET PO SCH (21:00)
[2016-11-11] MEDS: SUCRALFATE 1 G TABLET PO SCH (22:06)
[2016-11-11] MEDS: DOCUSATE SODIUM 100 MG CAPSULE PO SCH (22:06)
[2016-11-11] MEDS: MONTELUKAST 10 MG TABLET PO SCH (22:06)
[2016-11-11] MEDS: DABIGATRAN 150 MG CAPSULE PO SCH (22:06)
[2016-11-11] MEDS: ATORVASTATIN 20 MG TABLET PO SCH (22:06)
[2016-11-11] MEDS: GABAPENTIN 300 MG CAPSULE PO SCH (22:07)
[2016-11-12] VITALS (7 sets, daily range): BP systolic 122–150; BP diastolic 64–77; PULSE 65–72; RESP 16–20; TEMP 96.2–98.2; O2SAT 93–99
--- NOTE | 2016-11-12 04:17 | NUR ---
STATUS PT ALERT AND ORIENTED X 3. PT UP WITH SBA X 1. CONTINUES ON 3L OF 02 PER NC. PT ASKED IF THE IV SITE CAN BE CHANGED. SHE SAID THE SITE IS VERY PAINFUL FROM THE TIME IT WAS PLACED. IV SITE IN LEFT AC WAS REMOVED AND NEW SITE WAS STARTED IN THE LEFT WRIST. PT TOLERATED IT WELL. PT STATES HER RIGHT EYE HAS LIKE A FILM OVER IT. SHE IS WORRIED HER SIGHT IS CHANGING. PT IS BLIND IN HER LEFT EYE. WHEN ASSESSING HER RIGHT ARM SHE SAID IT FELT FUNNY TO. IT WAS LIKE HAVING HER ARM GOING TO SLEEP. PT IS ABLE TO USE HER RIGHT ARM AND DENIES PAIN IN IT. PT'S DAUGHTER GALE CALLED TO CHECK ON HER. REDIRECT HER DAUGHTER TO CALL THE PT PER CELL PHONE. NO INFORMATION WAS GIVEN CONCERNING PT'S HEALTH OR TESTS. PT SLEEPING WELL.
[2016-11-12 05:38] LABS: BASOPHILS % (AUTO) 0.7 % (0-2); EOSINOPHILS # (AUTO) 0.2 T/MM3 (0-0.5); EOSINOPHILS % (AUTO) 3.8 % (0-4); HGB - HEMOGLOBIN 12.6 GM/DL (12-16); IMMATURE GRANULOCYTE # (AUTO) 0.01 T/MM3 (0.00-0.03); IMMATURE GRANULOCYTE % (AUTO) 0.2 % (0.0-0.5); LYMPHOCYTES # (AUTO) 2.7 T/MM3 (1-4.8); LYMPHOCYTES % (AUTO) 43.8 % (23-45); MEAN CORPUSCULAR HGB CONC(MCHC 33.2 GM/DL (31-37); MEAN CORPUSCULAR VOLUME 93.4 UM3 (80-100); MEAN PLATELET VOLUME 9.8 UM3 (9.4-12.4); MONOCYTES # (AUTO) 0.6 T/MM3 (0-0.8); MONOCYTES % (AUTO) 10.6 % (0-9.0); NEUTROPHILS #(AUTO)-ABSOLUTE 2.5 T/MM3 (1.8-7.7); NEUTROPHILS % (AUTO) 40.9 % (33-66); RED BLOOD COUNT 4.07 M/MM3 (4.00-5.20); WBC - WHITE BLOOD COUNT 6.1 T/MM3 (4.5-11.0)
[2016-11-12 05:49] LABS: ANION GAP 9 MEQ/L (5-15); BUN/CREATININE RATIO 11 RATIO (6-26); CHLORIDE 107 MEQ/L (98-107); CO2 - CARBON DIOXIDE 29 MEQ/L (22-30); CREATININE 0.7 MG/DL (0.7-1.2); GLOMERULAR FILTRATION RATE 83; GLUCOSE 103 MG/DL (65-110); POTASSIUM 3.9 MEQ/L (3.6-5); SODIUM 145 MEQ/L (134-144)
[2016-11-12 06:17] LABS: THYROID STIM HORMONE-TSH 0.84 MIU/L (0.47-4.68)
[2016-11-12] MEDS: SUCRALFATE 1 G TABLET PO SCH ×4 (06:32→20:22)
[2016-11-12] MEDS: ALBUTEROL/IPRATROPIUM INHAL. 2.5mg-0.5mg/3ml Neb. AEROSOL SCH ×4 (07:52→19:02)
[2016-11-12] MEDS: BUDESONIDE INH.SOLN. 0.5mg/2ml NEB AEROSOL SCH ×2 (07:53→19:02)
[2016-11-12] MEDS: DABIGATRAN 150 MG CAPSULE PO SCH ×2 (08:20→20:21)
[2016-11-12] MEDS: METOPROLOL XL 50 MG TABLET PO SCH (08:20)
[2016-11-12] MEDS: ASPIRIN, BUFFERED 325 MG TABLET PO SCH (08:20)
[2016-11-12] MEDS: DULOXETINE 60 MG CAPSULE PO SCH (08:20)
[2016-11-12] MEDS: DOCUSATE SODIUM 100 MG CAPSULE PO SCH ×2 (08:21→20:28)
[2016-11-12] MEDS: POTASSIUM CHLORIDE 10 MEQ TABLET PO SCH (08:21)
[2016-11-12] MEDS: GABAPENTIN 300 MG CAPSULE PO SCH ×4 (08:21→20:21)
[2016-11-12] MEDS: PANTOPRAZOLE 40 MG TABLET PO SCH ×2 (08:21→17:33)
[2016-11-12] MEDS: FUROSEMIDE 20 MG TABLET PO SCH (08:21)
[2016-11-12] MEDS: DILTIAZEM CD 240mg CAP (QD) PO SCH (08:21)
[2016-11-12] MEDS: ISOSORBIDE MONONITRATE ER 30 MG TABLET PO SCH (08:21)
--- NOTE | 2016-11-12 09:16 | DI ---
Indication: ITS.REASON: cough PROCEDURE: CHEST 1 VIEW: Encounter: Initial Comparison: May 08, 2016 FINDINGS: The lungs are clear. There is no abnormal airspace opacity, pleural effusion or pneumothorax identified. The heart size, pulmonary vasculature and mediastinum are within normal limits. No significant skeletal abnormality is seen. IMPRESSION: No acute cardiopulmonary abnormality. There is a preliminary report by [facility]. .
--- NOTE | 2016-11-12 09:17 | DI ---
Indication: ITS.REASON: RUE weakness PROCEDURE: CT HEAD W/O CONTRAST: Encounter: Initial Comparison: None Technique: Axial CT images through the head were performed without contrast. Iterative Reconstruction dose reducing technique was utilized. FINDINGS: The ventricles are of normal size, shape, and contour for the patient's age. There are scattered areas of low attenuation in the white matter which most likely represent changes from chronic microvascular ischemia. The brainstem, cerebellum, and cerebral hemispheres otherwise have a normal morphology and CT attenuation. There is no evidence of midline displacement. No hemorrhage, signs of acute territorial stroke, mass effect, mass lesions, or edema is evident. The visualized portions of the skull base, midface, and calvarium demonstrate no abnormality. Right maxillary sinus opacification. The tympanic and mastoid cavities appear normal. IMPRESSION: No acute intracranial abnormality or hemorrhage. There is a preliminary report by [facility]. .
--- NOTE | 2016-11-12 10:26 | DI ---
Indication: ITS.REASON: Right arm/hand weakness/numbess - R/O CVA PROCEDURE: MRI BRAIN W/O CONTRAST: Encounter: Initial Comparisons: Head CT dated November 11, 2016 Technique: Multiplanar, multisequence, MR imaging of the head without contrast was acquired. FINDINGS: The ventricles are of normal size, shape, and contour for the patient's age. There are small nonspecific punctate areas of T2-weighted and T2 FLAIR weighted signal abnormality in the deep frontoparietal white matter that most likely represent small vessel ischemic disease. This is of a degree that is considered to be normal for the patient's age. The brain stem, cerebellum, and cerebral hemispheres otherwise have a normal morphologic appearance as well as MR signal intensity on all pulse sequences. There are no areas of restricted diffusion on diffusion weighted imaging to suggest an acute infarct. There is no evidence of an intracranial mass lesion, intracranial hemorrhage, or hydrocephalus. The visualized portions of the orbits, calvarium, and skull base demonstrate no significant abnormality. Right maxillary sinus opacification. IMPRESSION: No acute infarct or acute intracranial abnormality. Right maxillary sinusitis. There is a preliminary report by [facility]. .
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
--- NOTE | 2016-11-12 13:21 | PNPDOC ---
Subjective Date DATE: 11/12/16 TIME: 13:02 Subjective F/U: Right arm weakness, numbness, incoordination Little change. Right arm still feels weak and heavy, hard to control. Vision still off. No LE weakness or numbness. Speech stable. Breathing at baselined; not having increased cough or congestion. No chest pressure, pain or palpitations. Denies ab pain or nausea. Objective Vital Signs Vital signs Vital Signs Date Time Temp Pulse Resp B/P Pulse Ox O2 Delivery O2 Flow Rate FiO2 11/12/16 11:26 79 11/12/16 11:15 20 94 11/12/16 08:00 97.5 150/74 Nasal Cannula 3.00 Height (Feet): 5 Height (Inches): 3.00 Weight (Kilograms): 61.700 General General Appearance: Alert, Orientated x 3, Well Nourished, Well Developed, Cooperative, Looks Stated Age Eyes (Brief) Eyes: FOUND: EOMI, PERRL, NOT FOUND: scleral icterus ENMT (Brief) ENMT: FOUND: hearing intact, mucosa moist Neck (Brief) Neck: FOUND: midline, NOT FOUND: nuchal rigidity, spasm Respiratory (Brief) Respiratory: FOUND: equal bilaterally, other (No distress on RA ), wheezes ( Bilateral end expiratory ), NOT FOUND: clear all goldman (Decreased breath sounds. ), rales Cardiovascular (Brief) Cardiac: FOUND: pedal edema (trace ), regular rate, regular rhythm Abdomen (Brief) Abdominal: FOUND: BS normo active x4, soft, NOT FOUND: distended, tender Extremities (Brief) Extremity : Side: Bilateral Extremity: leg Extremity Finding: FOUND: edema (Trace ) Musculoskeletal (Brief) Musculoskeletal: FOUND: loss of motion (Decreased coordination of RUE/hand ), NOT FOUND: deformity, spasm Integumentary (Brief) Integumentary: FOUND: dry, warm Neurologic (Brief) Neurological: FOUND: cranial 2-12 intact, NOT FOUND: motor (Weakness/ incoordination of RUE/hand ) Psychiatric (Brief) Psychiatric: FOUND: alert, attentive, normal affect, oriented Laboratory Laboratory Laboratory Tests 11/11/16 15:25 11/12/16 04:55 Laboratory Tests 11/11/16 15:25 11/12/16 04:55 Assessment & Plan Problems: (1) RUE weakness Status: Acute Assessment & Plan: And incoordination. (2) Paresthesia Status: Acute Assessment & Plan: RUE (3) Syncopal episodes Status: Acute Qualifiers: Encounter type: initial encounter (4) Carotid artery disease Status: Chronic (5) Coronary artery disease Status: Chronic (6) Paroxysmal atrial fibrillation Status: Resolved (7) On continuous oral anticoagulation Status: Chronic Assessment & Plan: Pradaxa and ASA (8) Hypertension Status: Chronic (9) Hyperlipemia Status: Chronic Qualifiers: Hyperlipidemia type: unspecified Qualified Codes: E78.5 - Hyperlipidemia, unspecified (10) Type 2 diabetes mellitus Status: Chronic Qualifiers: Diabetes mellitus tile sprayer insulin use: without fci use (11) COPD (chronic obstructive pulmonary disease) Status: Chronic (12) Chronic respiratory insufficiency Status: Chronic (13) Pulmonary hypertension Status: Chronic (14) Tobacco abuse Status: Chronic (15) Osteoarthritis Status: Chronic Qualifiers: Osteoarthritis location: multiple joints Osteoarthritis type: primary Qualified Codes: M15.0 - Primary generalized (osteo)arthritis (16) Polymyalgia rheumatica Status: Chronic (17) GERD (gastroesophageal reflux disease) Status: Chronic Plan/Intensity of Service With MRI being unremarkable, will place consult to neurology for evaluation. Concern still raised for stroke. ECHO in am. PT/OT/Speech eval. May have nicotine patch. Tobacco cessation consult in place. Continue Pradaxa and ASA for anticoagulation. Continue tele. Anticipate Dr Calloway's return in am. DVT Prophylaxis: other (Pradaxa ) Code Status Full Code Hospital Course Summary Disclaimer The hospital course summary below is not to be considered part of the above Progress Note. Hospital Course Summary 11/11 Admit - Shannon covering for Dr Nino. Will place patient inpatient admission status at [facility] under the care of Dr. Ortega, covering physician for Dr. Nino. Anticipate greater than two midnights of care needed. Will obtain MRI of brain to exclude occult cerebral pathology. Obtain carotid Doppler and echocardiogram to search for embolic source. Continue with aspirin and Pradaxa for blood thinning. Consult with PT, OT and Speech for restorative modalities. Continue with supplemental oxygen to maintain saturations. Monitor oxygenation . Home medications will be continued . Monitor blood sugars. P.r.n. medications are okayed. Will have nursing perform neuro checks. Check TSH in light of fatigue, A1C in light of diabetes and B12 was warranted in light of numbness the patient is having. Discussed code status with patient. She requests full resuscitation. Order is written. The patient's care will be transitioned Dr. Nino on his return on 11/13/16. 11/12 Shannon - Covering for Dr Nino Little change. Right arm still feels weak and heavy, hard to control. Vision still off. No LE weakness or numbness. Speech stable. Breathing at baselined; not having increased cough or congestion. No chest pressure, pain or palpitations. Denies ab pain or nausea. With MRI being unremarkable, will place consult to neurology for evaluation. Concern still raised for stroke. ECHO in am. PT/OT/Speech eval. May have nicotine patch. Tobacco cessation consult in place. Continue Pradaxa and ASA for anticoagulation. Continue tele. Anticipate Dr Calloway's return in am. GINA ORTEGA MD Nov 12, 2016 13:05
[2016-11-12] MEDS: NICOTINE 14 MG PATCH TD SCH (14:10)
[2016-11-12] MEDS ORDERED: OXYC1TAB13 PO (17:37)
[2016-11-12] MEDS ORDERED: OXYCODONE/APAP 10mg/325mg TABLET PO PRN (17:45)
--- NOTE | 2016-11-12 18:27 | NUR ---
status Pt A/O x3, V?S stable on 3L her baseline for home. Pt ambulating well in room, denies SOA or dizziness. Pt eating well, denies N/V. Urine output good, no BM. Pt rating pain 11/10, N.O. to put her home PRN pain meds in and give. Resting well .
[2016-11-12] MEDS: ATORVASTATIN 20 MG TABLET PO SCH (20:22)
[2016-11-12] MEDS: MONTELUKAST 10 MG TABLET PO SCH (21:57)
[2016-11-13] VITALS: BP 159/79; PULSE 68; RESP 22; TEMP 97.8; O2SAT 98
[2016-11-13 05:33] LABS: ANION GAP 9 MEQ/L (5-15); BUN/CREATININE RATIO 14 RATIO (6-26); CALCIUM 9.2 MG/DL (8.4-10.2); CHLORIDE 105 MEQ/L (98-107); CO2 - CARBON DIOXIDE 31 MEQ/L (22-30); CREATININE 0.7 MG/DL (0.7-1.2); GLOMERULAR FILTRATION RATE 83; GLUCOSE 112 MG/DL (65-110); POTASSIUM 3.7 MEQ/L (3.6-5); SODIUM 145 MEQ/L (134-144)
[2016-11-13] MEDS: SUCRALFATE 1 G TABLET PO SCH ×3 (06:31→17:49)
[2016-11-13] MEDS: ISOSORBIDE MONONITRATE ER 30 MG TABLET PO SCH (06:31)
[2016-11-13] MEDS: PANTOPRAZOLE 40 MG TABLET PO SCH ×2 (06:31→17:49)
--- NOTE | 2016-11-13 06:36 | NUR ---
Shift Pt a/o x3, up ad milton- gait steady. VSS, 3L/NC, no c/o of pain this shift, awake most of the night, denies needs.
[2016-11-13 07:46] VITALS: BP 153/69; PULSE 75; RESP 22; O2SAT 95
[2016-11-13] MEDS: ALBUTEROL/IPRATROPIUM INHAL. 2.5mg-0.5mg/3ml Neb. AEROSOL SCH ×3 (07:50→15:11)
[2016-11-13] MEDS: BUDESONIDE INH.SOLN. 0.5mg/2ml NEB AEROSOL SCH (07:50)
[2016-11-13 07:52] VITALS: O2SAT 93
[2016-11-13 08:00] VITALS: RESP 16
[2016-11-13] MEDS ORDERED: NICOTINE PATCH REMOVAL TD SCH (09:00)
--- NOTE | 2016-11-13 09:45 | DI ---
Indication: ITS.REASON: CVA PROCEDURE: US CAROTID DOPP COMPLETE: Encounter: Initial Comparison: TECHNIQUE: Nunes-scale, color flow, and spectral pulsed Doppler imaging of the carotid and vertebral arteries of both sides of the neck was performed with segmental recordings of velocity spectra. FINDINGS: The vessel mascorro are smooth. Longitudinal color flow images reveal all vessels to be patent with a normal flow direction. The velocity spectra are of normal shape without flow acceleration or spectral broadening. The following peak systolic and end-diastolic velocities were measured (units given in cm/s): Right Common Carotid: 79 Prox Internal Car: 85/23 Mid Internal Carotid: 111/34 Dist Internal Carotid: 95/37 External Carotid: 163 Vertebral Artery: 57 Systolic Ratio: 1.4 Left Common Carotid: 74 Prox Internal Car: 128/38 Mid Internal Carotid: 126/39 Dist Internal Carotid: 118/31 External Carotid: 258 Vertebral Artery: 68 Systolic Ratio: 1.4 IMPRESSION: Normal to mild internal carotid artery stenosis, bilaterally, with estimated percent stenosis between 0% and 50% using NASCET criteria adapted to duplex ultrasound. The degree of stenosis of the left internal carotid artery is approaching the upper part of this normal range. Bilateral patent antegrade vertebral arteries. .
[2016-11-13] MEDS: METOPROLOL XL 50 MG TABLET PO SCH (10:05)
[2016-11-13] MEDS: DABIGATRAN 150 MG CAPSULE PO SCH (10:05)
[2016-11-13] MEDS: DULOXETINE 60 MG CAPSULE PO SCH (10:06)
[2016-11-13] MEDS: FUROSEMIDE 20 MG TABLET PO SCH (10:06)
[2016-11-13] MEDS: DOCUSATE SODIUM 100 MG CAPSULE PO SCH (10:06)
[2016-11-13] MEDS: ASPIRIN, BUFFERED 325 MG TABLET PO SCH (10:06)
[2016-11-13] MEDS: GABAPENTIN 300 MG CAPSULE PO SCH ×3 (10:06→17:49)
[2016-11-13] MEDS: DILTIAZEM CD 240mg CAP (QD) PO SCH (10:07)
[2016-11-13] MEDS: NICOTINE 14 MG PATCH TD SCH (10:07)
[2016-11-13] MEDS: POTASSIUM CHLORIDE 10 MEQ TABLET PO SCH (10:11)
--- NOTE | 2016-11-13 11:04 | STEVAL ---
Eval Subjective and History Date/Time of Eval DATE: 11/13/16 TIME: 10:41 Medical Diagnosis R/O CVA, RIGHT ARM WEAKNESS, DYSPHAGIA Treatment Order: Assessment, Dev./Imp. tx plan Orientations: Person, Place, Alert, Cooperative Primary Complaint: COUOGHS ON MEAT & THIN LIQUIDS INTERMITTENTLY Pain: No Date of Onset of Primary Com: 11/02/16 Prior History of This Problem: Yes (CVA, DYSPHAGIA) Patient's Goals: RETURN HOME Significant Past Medical Hx: PT ADMITTED 11/12/16 WITH POSSIBLE STROKE, RUE WEAKNESS/NUMBNESS. PMH: CAD, CAROTID ARTERY DISEASE W/ HEATORY OF CEA, PAROXYSMAL ATRIALFIBRILLATION, THN, D YSLIPIDEMIA, TYPE 2 DIABETES, COPD, CHRONIC RESPIRATORY INSUFFICIENCY, PULMONARY HTN, GERD, CVA, IDM, FULL CODE. Medical History Form Reviewed: Yes Residence Type: Private home/apartment Lives With: Alone Prior Functional Status: PT LIVED IN HER OWN APT INDEPENDENTLY. SHE REPORTED HX OF COUGHING ON LIQUIDS AND MEAT THAT HAS INCREASED RECENTLY. Current Functional Status: INCREASED RISK OF ASPIRATION. Education Subject: Diet, Swallowing Strategies Person(s) Educated: Patient Instruction Understanding Demo: Pt. verbalizes understand Education Comment GAME ENGINEER educated patient on reasoning for evaluation. Patient was agreeable to evaluation. Subjective and History Comment: PT WAS ALERT AND ORIENTED TO SURROUNDING AND REASON FOR HOSPITIALIZATION. Dysphagia Evaluation Evaluation Location: Bed Evaluation Angle: 90 Tongue Elevation: Mild Impairment Tongue Lateralization: Minimal Impairment Tongue Protrusion: No Impairment (WFL) Tongue Retraction: No Impairment (WFL) Tongue Extension Midline: No Impairment (WFL) Labial Approximation: No Impairment (WFL) Intraoral Air Pressure: Moderate Impairment (REDUCED ON RIGHT) Volitional Cough: No Impairment (WFL) Palatal Elevation: Minimal Impairment Larynx Elevation During Swallo: Minimal Impairment Saliva Control: No Impairment (WFL) Dentition: Natural Oral Peripheral Exam Comment: PT DEMONSTRATED WEAK INTRAORAL AIR PRESSURE, GREATER ON THE RIGHT. LABIAL ELEVATION WAS MODERATELY REDUCED BILATERALLY. LINGUAL MOVEMENTS WERE MILDY DELAYED WITH REDUCED COORDINATION. NO SIGNIFICANT FACIAL DROOP NOTED. Lip Seal: Adequate-liquid, Adequate-pudding, Adequate-solid Lingual Manipulation: Adequate-liquid (THIN BY CUP), Adequate-pudding, Adequate -solid Chewing: Adequate-solid Oral cavity clear post swallow: Adequate-liquid, Adequate-pudding, Adequate- solid Swallow initiated w/o delay: Adequate-liquid, Adequate-pudding, Adequate-solid Multiple swallows not needed: Adequate-liquid, Adequate-pudding, Inadequate- solid (MINIMAL) Voice clear&dry post swallow: Adequate-liquid, Adequate-pudding, Adequate-solid No cough/throat clear: Adequate-liquid, Adequate-pudding, Adequate-solid Assessment/Plan of Care Speech Therapy Impressions: PT DEMONSTRATED WEAK INTRAORAL AIR PRESSURE, GREATER ON THE RIGHT. LABIAL ELEVATION WAS MODERATELY REDUCED BILATERALLY. LINGUAL MOVEMENTS WERE MILDY DELAYED WITH REDUCED COORDINATION. NO SIGNIFICANT FACIAL DROOP NOTED. 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 SHE DRANK THIN WATER WITH PROMPT SWALLOW, DRY VOICE AND NO S/S OF ASPIRATION. GAME ENGINEER AND PT DISCUSSED DIET OPTIONS. PT CHOSE SOFT DIET/CHOPPED MEAT WITH GRAVY ON SIDE . Process Control Specialist Goal: Pt will maintain nutrition and hydration of the least restrictive diet while demonstrating no s/s of aspiration for 3 consecutive trials. Short Term Goal: Pt will consume a soft diet/chopped meat and gravy with thin liquids without outward signs of aspiration at bedside in 3/3 trials. Pt will demonstrate3/3 components necessary for a safe swallow as listed from the following small bites, slow rate, alternate solids and liquids, and secondary swallow as needed. Pt will implement compensatory feeding strategies in 3 feeding trials/meals with minimal cues to aid recall. ST Treatment Plan: Swallow Retraining, Swallow Precautions, Modified Diet ST Treatment Plan Frequency: three times per week Treatment Plan Duration: one week Plan of Care Comment Swallow Retraining Swallow Precautions Modified diet Recommended Diet: Soft diet/chopped meat and regular liqudis Date of Visit 11/13/16 Time Visit Began: 10:05 Time Visit Ended: 10:35 ST Assess/Plan of Care: ST Treatment Charge: Swallow Eval Minutes of Individual Therapy: 30 PASCUAL CABAN MS CCC-GAME ENGINEER Nov 13, 2016 10:44
[2016-11-13 11:37] VITALS: O2SAT 95
--- NOTE | 2016-11-13 11:59 | NUR ---
NICOLAS VALENZUELA VISITED PT. CM EXPLAINED ROLE AND PROVIDED CONTACT INFORMATION. PT PLANS TO RETURN HOME POST STAY AT [facility] [place]. PT IS AWARE THAT OT HAS RECOMMENDED OUTPT THERAPY. PT HAS AGREED AND WILL USE [facility]. PT HAS HOME OXYGEN SUPPLIED BY [facility]. PT HAS TANK IN ROOM FOR TRANSPORT HOME. PT IS AWARE TO CONTACT CM IF NEEDS ARISE.
[2016-11-13 15:43] VITALS: BP 134/66; PULSE 68; RESP 20; TEMP 96.2; O2SAT 96
--- NOTE | 2016-11-13 17:45 | NUR ---
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 tele is sr denies any chest pain or soa.
[2016-11-13] MEDS ORDERED: DILT360C38 PO (18:11)
--- NOTE | 2016-11-13 18:24 | DSPDOC ---
Discharge Diagnoses Discharge Diagnoses (1) RUE weakness Comments: And incoordination. (2) Paresthesia Comments: RUE (3) Syncopal episodes (4) Carotid artery disease (5) Coronary artery disease (6) Paroxysmal atrial fibrillation (7) On continuous oral anticoagulation Comments: Pradaxa and ASA (8) Hypertension (9) Hyperlipemia (10) Type 2 diabetes mellitus (11) COPD (chronic obstructive pulmonary disease) (12) Chronic respiratory insufficiency (13) Pulmonary hypertension (14) Tobacco abuse (15) Osteoarthritis (16) Polymyalgia rheumatica (17) GERD (gastroesophageal reflux disease) Hospital Course 11/11 Admit - Shannon covering for Dr Messer. Will place patient inpatient admission status at [facility] under the care of Dr. Ortega, covering physician for Dr. Messer. Anticipate greater than two midnights of care needed. Will obtain MRI of brain to exclude occult cerebral pathology. Obtain carotid Doppler and echocardiogram to search for embolic source. Continue with aspirin and Pradaxa for blood thinning. Consult with PT, OT and Speech for restorative modalities. Continue with supplemental oxygen to maintain saturations. Monitor oxygenation . Home medications will be continued . Monitor blood sugars. P.r.n. medications are okayed. Will have nursing perform neuro checks. Check TSH in light of fatigue, A1C in light of diabetes and B12 was warranted in light of numbness the patient is having. Discussed code status with patient. She requests full resuscitation. Order is written. The patient's care will be transitioned Dr. Messer on his return on 11/13/16. 11/12 Shannon - Covering for Dr Messer Little change. Right arm still feels weak and heavy, hard to control. Vision still off. No LE weakness or numbness. Speech stable. Breathing at baselined; not having increased cough or congestion. No chest pressure, pain or palpitations. Denies ab pain or nausea. With MRI being unremarkable, will place consult to neurology for evaluation. Concern still raised for stroke. ECHO in am. PT/OT/Speech eval. May have nicotine patch. Tobacco cessation consult in place. Continue Pradaxa and ASA for anticoagulation. Continue tele. Anticipate Dr Calloway's return in am. 11/13/2016: Patient had a syncopal episode at home. She has been on 50 mg of metoprolol XL as well as 240 mg of diltiazem ER. This combination can result in heart block and then syncope. I have stopped her metoprolol and increase the diltiazem to 360 mg I will discharge her to home and have her follow-up with outpatient occupational therapy. She will also need upper extremity nerve conduction test/EMG. I believe her right arm weakness and tingling is coming from ulnar nerve entrapment has a opposed to stroke. Home Meds Active Scripts Diltiazem HCl (Diltiazem 24Hr ER) 360 Mg Cap.er.24h, 360 MG PO DAILY for 30 Days , #30 CAP 5 Refills Prov:KANDI MESSER 11/13/16 Reported Medications Oxycodone HCl/Acetaminophen (Percocet 10-325 mg Tablet) 10-325 Tablet, 1 TAB PO Q6H Y for PAIN, TAB Take 1 tablet, by mouth, every 4 hours as needed for pain. 11/12/16 Aspirin/Calcium Carbonate/Mag (Aspirin Buffered 325 mg Tab) 325 Mg Tablet, 1 TAB PO DAILY 06/27/16 Furosemide (Furosemide) 20 Mg Tablet, 20 MG PO DAILY 06/26/16 Isosorbide Mononitrate (Isosorbide Mononitrate ER) 30 Mg Tab.er.24h, 30 MG PO DAILY 06/26/16 Albuterol Sulfate (Albuterol Sulfate) 2.5 Mg/0.5 Ml Vial.neb, 2 VIAL AEROSOL Q6H , #120 VIAL 5 Refills 06/26/16 Budesonide (Budesonide) 0.5 Mg/2 Ml Ampul.neb, 1 VIAL AEROSOL BID 05/08/16 Sucralfate (Sucralfate) 1 Gm Tablet, 1 GM PO QID 05/08/16 Potassium Chloride (Potassium Chloride) 10 Meq Tablet.er, 10 MEQ PO DAILY 05/08/16 Pantoprazole Sodium (Pantoprazole Sodium) 40 Mg Tablet.dr, 40 MG PO BID 05/08/16 Docusate Sodium (Docusate Sodium) 100 Mg Capsule, 100 MG PO BID 05/08/16 Nitroglycerin (Nitrostat) 0.4 Mg Tablet, 1 TAB SL PRN Y for PRN ORDERS, #100 TAB 3 Refills 03/31/16 Ipratropium/Albuterol Sulfate (Iprat-Albut 0.5-3(2.5) mg/3 ml) 3 Ml Ampul.neb, 1 UNIT AEROSOL QID 12/14/15 Atorvastatin Calcium (Atorvastatin Calcium) 20 Mg Tablet, 20 MG PO DAILY 07/24/15 Albuterol Sulfate (Proair HFA 90 mcg/actuation) 8.5 Gm Hfa.aer.ad, 2 PUFF INH Q4H Y for PRN ORDERS 07/24/15 Tiotropium [place] (Spiriva Respimat) 4 Gm Mist.inhal, 2 PUFF INH HS 07/24/15 Dabigatran Etexilate Mesylate (Pradaxa) 150 Mg Capsule, 150 MG PO BID 07/24/15 Gabapentin (Gabapentin) 300 Mg Capsule, 300 MG PO QID 07/24/15 Duloxetine HCl (Duloxetine HCl) 60 Mg Capsule.dr, 60 MG PO DAILY 07/24/15 Montelukast Sodium (Montelukast Sodium) 10 Mg Tablet, 10 MG PO HS 07/24/15 Discontinued Reported Medications Diltiazem HCl (Diltiazem 24Hr ER) 240 Mg Capsule, 240 MG PO DAILY 07/24/15 Metoprolol Succinate (Metoprolol Succinate) 50 Mg Tab.er.24h, 50 MG PO DAILY 07/24/15 Discharge Disposition Discharge to home Copies To 1: KANDI MESSER DO Follow up Condition at time of discharge: Good Follow up As above KANDI MESSER DO Nov 13, 2016 18:24
--- NOTE | 2016-11-13 18:48 | NUR ---
dc instrustions reviewed with pt iv lock and tele :dc;d dc per wc with family.
[2016-11-14 02:36] LABS: LDL CHOLESTEROL,CALCULATED 70.8 (66-159); RISK FACTOR 2.1 RATIO (0-4.0); VLDL CHOLESTEROL 12.2 MG/DL (0-28)
--- NOTE | 2016-11-14 08:07 | ECHOF ---
DATE OF PROCEDURE November 13, [address] Bin Nino This is a two-dimensional echo with spectral Doppler, color-flow and M-mode. It was obtained in a patient with CVA. Left atrium is dilated. Left ventricle end-diastolic dimension is normal. Left ventricle wall thickness is increased. LV systolic function is normal with ejection fraction of about 65%. Right atrium is normal. Right ventricle is normal. Aortic root dimension is normal. Mitral valve is morphologically normal with mild mitral regurgitation. Aortic valve appears to be normal. Tricuspid valve shows mild tricuspid regurgitation with mild pulmonary hypertension with estimated pulmonary artery systolic pressure of 40. Pulmonary valve shows no pulmonary insufficiency. There is no pericardial effusion. Grossly there is no intracardiac thrombus or mass. IMPRESSION 1. Grossly no intracardiac thrombus or mass. 2. Normal LV systolic function with ejection fraction of 65%. 3. Concentric left ventricular hypertrophy. 4. Left atrial dilation. 5. Mild mitral regurgitation. 6. Mild tricuspid regurgitation with mild pulmonary hypertension with estimated pulmonary artery systolic pressure of 40. MTDD
--- NOTE | 2016-11-14 08:17 | STDAILYN ---
Discharge Note Date/Time DATE: 11/14/16 TIME: 08:16 Discharge From: Inpatient ST Discharge Destination: Home (with Assist) Other Reasons for Discharge: swallow plan in place Discharge Summary: Pt dc'd home with recommendations for soft diet/chopped meat and regular liquids. Recommended Follow-up: No Follow-up Needed PASCUAL CABAN MS CCC-GROUNDING ENGINEER Nov 14, 2016 08:17
--- NOTE | 2016-11-14 15:55 | NUR ---
CM CM LVM
== END 2016-11-13 19:10 | disposition home or self-care (01) | DRG 556 ==
LOC: ED 14:57 → EDHOLD 16:43 → MED 17:20
PROVIDERS: ADMIT Hospitalist; ATTEND Internal Medicine
DX: R29.898 Other symptoms and signs involving the musculoskeletal system (principal); R55 Syncope and collapse; R20.9 Unspecified disturbances of skin sensation; E11.9 Type 2 diabetes mellitus without complications; I25.10 Atherosclerotic heart disease of native coronary artery without angina pectoris; I48.0 Paroxysmal atrial fibrillation; I10 Essential (primary) hypertension; E78.5 Hyperlipidemia, unspecified; J44.9 Chronic obstructive pulmonary disease, unspecified; I27.2 Other secondary pulmonary hypertension; F17.200 Nicotine dependence, unspecified, uncomplicated; M19.91 Primary osteoarthritis, unspecified site; M35.3 Polymyalgia rheumatica; K21.9 Gastro-esophageal reflux disease without esophagitis; K59.00 Constipation, unspecified; Z79.82 Long term (current) use of aspirin
CPT/HCPCS: 36415; 80048; 80053; 80061; 81001; 82607; 82948; 83036; 84443; 84484; 85025; 85610; 85730; 93005; 93306; 94640; 99406